=== PATIENT | female | born 1980 | race African-American/Black ===

== ENCOUNTER 2024-06-13 08:57 | Outpatient (CLI) | payer OTHER, SELFPAY ==
--- NOTE | ~2024-06-13 | PE_ITS ---
EXAMINATION: PET skull to mid thigh DATE: 06/13/2024 11:18 INDICATION: Right lung mass and lymphadenopathy TECHNIQUE: Blood glucose level was 81 mg/dL. 10.167 mCi of 18-fluorodeoxyglucose (18-FDG) was adminis tered i.v. Low dose computed tomography (CT) images were acquired from the base of the brain to the p roximal thighs for attenuation correction and anatomic localization. Positron emission tomography (PE T) images were acquired in the same distribution beginning 55 minutes after injection. Images includi ng fused PET/CT images were reconstructed in axial, coronal, and sagittal planes. Automated exposure control technique was employed. The dose-length product was 1319.18mGy-cm. COMPARISON: None FINDINGS: Head/neck: There is symmetric increased activity in the oral cavity, palatine tonsils, parotid glands, submandi bular glands, laryngeal muscles and ocular muscles without CT correlate, likely physiologic. No patho logically enlarged cervical lymphadenopathy or suspicious foci of increased FDG uptake in the visuali zed head or neck. Chest: 12 x 10 mm right apical nodule without FDG uptake. Mild discoid atelectasis in the right lower lobe. No other suspicious pulmonary nodules, pneumonia or pleural effusion. Heart size is normal. No perica rdial effusion. Thoracic aorta is normal in caliber. There is a small focus of mild increased uptake at the right hilum with maximal SUV of 7.4. No evident associated pathologically enlarged lymph node hilar vasculature is also examination of lymph nodes from the pulmonary vasculature is limited on non contrast imaging. No other pathologically enlarged or FDG avid thoracic lymphadenopathy. Abdomen/pelvis/proximal thighs: Physiologic renal accumulation and excretion of FDG activity in the kidneys, bladder and along portio ns of ureters. Normal degree and heterogenous pattern of increased uptake throughout the liver withou t radiologic correlate or dominant FDG avid lesion. The gallbladder, pancreas, spleen and bilateral a drenal glands are normal. Mild uptake scattered throughout the bowels without radiologic correlate, a lso likely physiologic. Normal appendix. No other abnormal foci of increased FDG uptake or pathologic ally enlarged lymphadenopathy in the abdomen, pelvis or proximal thighs. Musculoskeletal: Relatively symmetric likely physiologic muscular activity without radiologic correlate most prominent in the upper extremities and bilateral serratus anterior muscles. No suspicious lytic, blastic or ab normally FDG avid bone lesions. IMPRESSION: 1. No FDG activity associated with a 12 x 10 mm right apical nodule. While reassuring this does not a bsolutely exclude malignancy and would recommend correlation with any prior outside imaging and 3-[address] 2. Small focus of moderately increased activity at the right hilum but without evident associated enl arged lymph node is statistically most likely a reactive lymph node. Again would correlate with prior outside imaging and this could be reassessed at the same time by contrast-enhanced chest CT in 3-6 m ont. No other enlarged or FDG avid lymph nodes in the chest, abdomen or pelvis. Reviewed, dictated and finalized at location B. IMPRESSION: 1. No FDG activity associated with a 12 x 10 mm right apical nodule. While reas suring this does not absolutely exclude malignancy and would recommend correlat ion with any prior outside imaging and 3-[address] 2. Small focus of moderately increased activity at the right hilum but without evident associated enlarged lymph node is statistically most likely a reactive lymph node. Again would correlate with prior outside imaging and this could be reassessed at the same time by contrast-enhanced chest CT in 3-6 months. No oth er enlarged or FDG avid lymph nodes in the chest, abdomen or pelvis.
[2024-06-13 09:31] LABS: Glucose Point of Care 81 mg/dl (65-105)
== END 2024-06-13 08:58 | disposition home or self-care (01) ==
LOC: ANHIMG 09:01
PROVIDERS: Visit Provider Internal Medicine
DX: R59.0 Localized enlarged lymph nodes (principal)
CPT/HCPCS: 78815; A9552